=== PATIENT | male | born 1975 | race Two or more races ===

== ENCOUNTER 2018-03-03 17:11 | Emergency (ER) | payer OTHER ==
[2018-03-03] MEDS ORDERED: HYDROCODONE/APAP 10/325 TAB ONE (17:39)
--- NOTE | 2018-03-03 19:39 | EDPHYS ---
Physician Documentation [facility] Name: Andrew Keita Age: 42 yrs Sex: Male : 1975 Arrival Date: 03/03/2018 Time: 17:18 Bed 17 Private MD: None, None ED Physician Jose Francisco Albarado HPI: 03/03 18:32 This 42 yrs old Male presents to ER via Wheelchair with complaints of Knee Pain. [facility] 18:32 The patient presents with an injury, pain. Onset: The symptoms/episode began/occurred jmm acutely, 6 day(s) ago. This is a 42 year old male with a history of HTN that presents to the ED with left knee pain beginning while playing basketball. Patient states his left patellar tendon ruptured. Patient states having continued pain. Patient denies other injury. . Historical: - Allergies: 17:23 No Known Allergies; la1 - PMHx: 17:23 Hypertension; la1 - Immunization history:: Adult Immunizations up to date. - Social history:: Smoking status: Patient/guardian denies using tobacco. - Ebola Screening: : No symptoms or risks identified at this time. ROS: 18:32 Constitutional: Negative for fever, chills, and weight loss, Cardiovascular: Negative jmm for chest pain, palpitations, and edema, Respiratory: Negative for shortness of breath, cough, wheezing, and pleuritic chest pain. 18:32 MS/extremity: Positive for pain. 18:32 All other systems are negative. Exam: 18:32 Constitutional: This is a well developed, well nourished patient who is awake, alert, jmm and in no acute distress. Head/Face: atraumatic. Respiratory: Normal respirations, no respiratory distress appreciated 18:32 Cardiovascular: Rate: tachycardic. 18:32 Musculoskeletal/extremity: left anterior knee TTP, pain elicited on palpation at the left tendon insertion site, petalla noted superior, compartments soft, NVI. 18:32 Skin: Appearance: Color: normal in color. 18:32 Neuro: Orientation: is normal, Mentation: is normal, Memory: is normal. 18:32 Psych: Behavior/mood is pleasant, cooperative. Vital Signs: 17:23 BP 178 / 110; Pulse 120; Resp 19; Temp 97.8; Pulse Ox 100% on R/A; Weight 65 kg (R); la1 18:36 BP 146 / 108; Pulse 102; Resp 18; Pulse Ox 98% on R/A; Pain 5/10; em 19:47 BP 149 / 112; Pulse 99; Resp 17 S; Pulse Ox 96% on R/A; jd3 MDM: 17:28 Patient medically screened. [facility] 18:36 Data reviewed: vital signs, nurses notes. [facility] 19:38 Counseling: I had a detailed discussion with the patient and/or guardian regarding: the [facility] historical points, exam findings, and any diagnostic results supporting the discharge/admit diagnosis, radiology results, the need for outpatient follow up, to return to the emergency department if symptoms worsen or persist or if there are any questions or concerns that arise at home. 19:40 Data reviewed: radiologic studies, plain films. [facility] 03/03 17:30 Order name: Knee Left 3 View XRAY; Complete Time: 19:49 [facility] 03/03 18:58 Order name: Knee Immobilizer; Complete Time: 19:07 [facility] 03/03 18:58 Order name: Crutches; Complete Time: 19:07 [facility] Administered Medications: 17:42 Drug: [place] 10 mg-325 mg 1 tabs Route: PO; em 19:00 Follow up: Response: No adverse reaction jd3 Disposition: 03/04 08:02 Co-signature as Attending Physician, Jose Francisco Albarado MD I agree with the assessment and kdr plan of care. Disposition: 03/03/18 19:38 Discharged to Home. Impression: Left Patellar Tendon Disruption. - Condition is Stable. - Discharge Instructions: Patellar Dislocation. - Medication Reconciliation Form, Thank You Letter, Antibiotic Education, Prescription Opioid Use form. - Follow up: Joel Slater MD; When: 1 - 2 days; Reason: Recheck today's complaints, Continuance of care, Re-evaluation by your physician. - Notes: Please follow up with Orthopedic surgery for further evaluation. Please return to the ED if you develop increased pain or any other concerning symptoms. Signatures: Dispatcher [employer] EDJose Francisco Swartz MD MD kdr Mickail, Joel, PA PA [facility] Bigg Tolbert, BUILDING CLEANER BUILDING CLEANER em Bg Smith RN RN la1 Deric Beltrán RN RN jd3 Corrections: (The following items were deleted from the chart) 03/03 19:58 19:38 03/03/2018 19:38 Discharged to Home. Impression: Left Patellar Tendon Disruption. jd3 Condition is Stable. Forms are Medication Reconciliation Form, Thank You Letter, Antibiotic Education, Prescription Opioid Use. Follow up: Joel Slater; When: 1 - 2 days; Reason: Recheck today's complaints, Continuance of care, Re-evaluation by your physician. marvin
--- NOTE | 2018-03-03 19:39 | ER ---
Nurse's Notes [facility] Name: Andrew Keita Age: 42 yrs Sex: Male : 1975 Arrival Date: 03/03/2018 Time: 17:18 Bed 17 Private MD: None, None Diagnosis: Left Patellar Tendon Disruption Presentation: 03/03 17:22 Presenting complaint: Patient states: About a week ago I hurt my left knee playing la1 basketball and I went to a clinic, they did not do an xray put me in a brace. My job wants me to start working and I cannot walk up the steps. Transition of care: patient was not received from another setting of care. Onset of symptoms was March 03, 2018. Risk Assessment: Do you want to hurt yourself or someone else? Patient reports no desire to harm self or others. Initial Sepsis Screen: Does the patient meet any 2 criteria? No. Patient's initial sepsis screen is negative. Does the patient have a suspected source of infection? No. Patient's initial sepsis screen is negative. Care prior to arrival: None. 17:22 Method Of Arrival: Wheelchair la1 17:22 Acuity: KERI 3 la1 Historical: - Allergies: 17:23 No Known Allergies; la1 - PMHx: 17:23 Hypertension; la1 - Immunization history:: Adult Immunizations up to date. - Social history:: Smoking status: Patient/guardian denies using tobacco. - Ebola Screening: : No symptoms or risks identified at this time. Screenin:23 Abuse screen: Denies threats or abuse. Nutritional screening: No deficits noted. em Tuberculosis screening: No symptoms or risk factors identified. Fall Risk None identified. Assessment: 17:40 General: Appears in no apparent distress. uncomfortable, Behavior is calm, cooperative. em Pain: Complains of pain in left knee Pain currently is 8 out of 10 on a pain scale. Neuro: Level of Consciousness is awake, alert, obeys commands, Oriented to person, place, time, situation. Cardiovascular: Capillary refill < 3 seconds Patient's skin is warm and dry. Respiratory: Airway is patent Respiratory effort is even, unlabored, Respiratory pattern is regular, symmetrical. GI: Abdomen is flat. : No signs and/or symptoms were reported regarding the genitourinary system. EENT: No signs and/or symptoms were reported regarding the EENT system. Derm: Skin is intact, Skin is pink, warm \T\ dry. Musculoskeletal: Range of motion: intact in all extremities. 18:36 Reassessment: Patient appears in no apparent distress at this time. Patient and/or em family updated on plan of care and expected duration. Pain level reassessed. Patient is alert, oriented x 3, equal unlabored respirations, skin warm/dry/pink. rates pain 5/10 Patient states feeling better. 19:47 Reassessment: Patient appears in no apparent distress at this time. Patient and/or jd3 family updated on plan of care and expected duration. Pain level reassessed. Patient is alert, oriented x 3, equal unlabored respirations, skin warm/dry/pink. Patient states feeling better. Vital Signs: 17:23 BP 178 / 110; Pulse 120; Resp 19; Temp 97.8; Pulse Ox 100% on R/A; Weight 65 kg (R); la1 18:36 BP 146 / 108; Pulse 102; Resp 18; Pulse Ox 98% on R/A; Pain 5/10; em 19:47 BP 149 / 112; Pulse 99; Resp 17 S; Pulse Ox 96% on R/A; jd3 ED Course: 17:18 Patient arrived in ED. mr 17:18 None, None is Private Physician. mr 17:23 Triage completed. la1 17:24 Arm band placed on right wrist. la1 17:25 Eduardo Sandhu PA is PHCP. jmm 17:25 Jose Francisco Albarado MD is Attending Physician. jmm 17:29 Bigg Tolbert LVN is Primary Nurse. em 18:13 X-ray completed. Portable x-ray completed in exam room. Patient tolerated procedure la2 well. 18:15 Knee Left 3 View XRAY In Process Unspecified. EDMS 18:23 Patient has correct armband on for positive identification. Call light in reach. em 18:23 No provider procedures requiring assistance completed. em 19:12 Crutch training done. Knee immobilizer applied on left knee. [facility] 19:38 Joel Slater MD is Referral Physician. jmm 19:49 Patient did not have IV access during this emergency room visit. jd3 Administered Medications: 17:42 Drug: [place] 10 mg-325 mg 1 tabs Route: PO; em 19:00 Follow up: Response: No adverse reaction jd3 Outcome: 19:38 Discharge ordered by . marvin 19:49 Discharged to home ambulatory, with friend. jd3 19:49 Condition: stable 19:49 Discharge instructions given to patient, Instructed on discharge instructions, follow up and referral plans. Demonstrated understanding of instructions, follow-up care. 19:58 Patient left the ED. jd3 Signatures: Dispatcher [employer] EDEduardo Dolan PA PA jmm Rivera, Maria mr Tolbert, Bigg, MANUFACTURING LABORER MANUFACTURING LABORER Bg Smith, RN RN Alexandra Davis [facility] Mayra Zhong Jonathon, ERWIN RN jd3
--- NOTE | 2018-03-03 19:47 | RAD REPORT ---
EXAM DESCRIPTION: RAD - Knee Left 3 View - 03/03/2018 6:19 pm CLINICAL HISTORY: PAIN<Reason For Exam>PAIN Knee pain, basketball injury COMPARISON: No comparisons<Comparisons> FINDINGS: No fracture, dislocation or periosteal reaction.No measurable joint effusion seen. No join t space narrowing. Patient has a patella carlton configuration. Patella tendon is not well defined on th is examination. No evidence for avulsion from the inferior patella or the tibial tubercle. Correlatio n can be made with exam finding for possible patella injury. IMPRESSION: No bone fracture or avulsion identifiable. Patella carlton configuration can be a normal variant. However, given the poorly defined patella tendon, a patella tendon injury is not excluded given the mechanism of injury. Clinical concerns for patella tendon injury, other internal derangement or occult bony injury could b e further assessed with MR imaging.
== END 2018-03-03 19:58 | disposition home or self-care (01) ==
LOC: ER 17:11
DX: S83.8X2A Sprain of other specified parts of left knee, initial encounter (principal); I10 Essential (primary) hypertension; Y93.67 Activity, basketball
CPT/HCPCS: 99283